=== PATIENT | female | born 1960 | race Caucasian/White ===

== ENCOUNTER 2019-02-18 15:52 | Emergency (ER) | payer MEDICARE, MEDICAID ==
[2019-02-18] MEDS ORDERED: Adacel (T-DAP) 0.5 ML SYRINGE ONE (16:04)
== END 2019-02-18 16:21 | disposition home or self-care (01) ==
LOC: BURERS 15:52
DX: S91.331A Puncture wound without foreign body, right foot, initial encounter (principal); E78.5 Hyperlipidemia, unspecified; F31.9 Bipolar disorder, unspecified; F41.9 Anxiety disorder, unspecified; F90.9 Attention-deficit hyperactivity disorder, unspecified type; Z79.899 Other long term (current) drug therapy; W22.8XXA Striking against or struck by other objects, initial encounter
CPT/HCPCS: 90471; 90715

== ENCOUNTER 2019-04-13 15:23 | Emergency (ER) | payer MEDICARE, MEDICAID ==
[2019-04-13] MEDS ORDERED: Lidocaine 1% PF 5 ML VIAL ONE (15:35)
--- NOTE | 2019-04-13 16:49 | RAD ---
LEFT THIRD DIGIT: 04/13/2019 FINDINGS: A mildly comminuted fracture of the distal phalanx is present. There is slight posterior displacemen t of the major distal fragment. IMPRESSION: Distal phalanx fracture. POS: HOME
== END 2019-04-13 16:35 | disposition home or self-care (01) ==
LOC: BURERS 15:23
DX: S62.663A Nondisplaced fracture of distal phalanx of left middle finger, initial encounter for closed fracture (principal); S61.213A Laceration without foreign body of left middle finger without damage to nail, initial encounter; E78.5 Hyperlipidemia, unspecified; F31.9 Bipolar disorder, unspecified; F41.9 Anxiety disorder, unspecified; F90.9 Attention-deficit hyperactivity disorder, unspecified type; W23.0XXA Caught, crushed, jammed, or pinched between moving objects, initial encounter
CPT/HCPCS: 12001; 26600; J2001